=== PATIENT | female | born 1970 | race Caucasian/White ===

== ENCOUNTER 2020-09-06 12:07 | Emergency (ER) | payer OTHER ==
[2020-09-06 12:57] LABS: RED BLOOD COUNT 4.77 M/UL (4.00-5.10); WHITE BLOOD COUNT 10.4 K/UL (4.5-11.0)
[2020-09-06 13:18] LABS: BUN/CREATININE RATIO 11 (0-10)
[2020-09-06] MEDS ORDERED: VIBRAMYCIN100 MG PO (16:24)
== END 2020-09-06 16:35 | disposition home or self-care (01) ==
LOC: ER1 12:07
PROVIDERS: Physician Assistant
DX: J18.9 Pneumonia, unspecified organism (principal); Z20.822 Contact with and (suspected) exposure to COVID-19; J45.909 Unspecified asthma, uncomplicated; Z90.49 Acquired absence of other specified parts of digestive tract; Z90.710 Acquired absence of both cervix and uterus; Z79.899 Other long term (current) drug therapy; Z88.0 Allergy status to penicillin; Z88.2 Allergy status to sulfonamides; F17.210 Nicotine dependence, cigarettes, uncomplicated
CPT/HCPCS: 71045; 80053; 82550; 82553; 83874; 84484; 85025; 85379; 93005; 99285; U0002

== ENCOUNTER → 2020-11-02 | Outpatient (CLI) | payer OTHER ==
[~2020-11-02] MED LIST: PERCOCET 5-3251 EACH PO; TORADOL 10 MG T10 MG PO; VIBRAMYCIN100 MG PO
[2020-11-02 11:47] LABS: HEMOGLOBIN 14.9 gm/dl (12.3-15.3); RED BLOOD COUNT 4.8 M/UL (4.00-5.10); WHITE BLOOD COUNT 11.1 K/UL (4.5-11.0)
[2020-11-02 12:44] LABS: BUN/CREATININE RATIO 14 (0-10)
== END ==
LOC: LAB 10:39
PROVIDERS: Nurse Practitioner Family
DX: R94.31 Abnormal electrocardiogram [ECG] [EKG] (principal)
CPT/HCPCS: 36415; 80053; 80061; 82607; 84443; 85025

== ENCOUNTER 2020-12-19 15:36 | Emergency (ER) | payer OTHER ==
[~2020-12-19 15:36] MED LIST changes: -PERCOCET 5-3251 EACH PO; -TORADOL 10 MG T10 MG PO
[2020-12-19 17:43] LABS: HEMOGLOBIN 14.1 gm/dl (12.3-15.3); RED BLOOD COUNT 4.52 M/UL (4.00-5.10); WHITE BLOOD COUNT 11.5 K/UL (4.5-11.0)
[2020-12-19 18:09] LABS: BUN/CREATININE RATIO 11 (0-10)
[2020-12-19] MEDS ORDERED: PERCOCET 5-3251 EACH PO (18:40)
[2020-12-19] MEDS ORDERED: TORADOL 10 MG T10 MG PO (18:40)
== END 2020-12-19 19:00 | disposition home or self-care (01) ==
LOC: ER1 15:36
PROVIDERS: Family Medicine
DX: M25.521 Pain in right elbow (principal); F17.210 Nicotine dependence, cigarettes, uncomplicated; Z88.1 Allergy status to other antibiotic agents
CPT/HCPCS: 71045; 73080; 80053; 82550; 82553; 83874; 84484; 85025; 85652; 86140; 93005; 96374; 99284; J1885

== ENCOUNTER → 2021-01-02 | Outpatient (CLI) | payer OTHER ==
[~2021-01-02] MED LIST changes: +PERCOCET 5-3251 EACH PO; +TORADOL 10 MG T10 MG PO
== END ==
LOC: CT 12:45
DX: R10.812 Left upper quadrant abdominal tenderness (principal); N83.202 Unspecified ovarian cyst, left side; N83.201 Unspecified ovarian cyst, right side
CPT/HCPCS: 36415; 82565; Q9967

== ENCOUNTER → 2021-03-02 | Outpatient (CLI) | payer OTHER | LOC: EXRD 09:59 | DX: R06.02 Shortness of breath (principal) | CPT/HCPCS: 94060; 94729 ==

== ENCOUNTER → 2021-05-22 | Outpatient (CLI) | payer OTHER | LOC: KOH-I 11:22 | DX: J45.909 Unspecified asthma, uncomplicated (principal); R91.8 Other nonspecific abnormal finding of lung field | CPT/HCPCS: 71046 ==

== ENCOUNTER 2021-12-05 12:05 | Observation (INO) | payer OTHER ==
[~2021-12-05] VITALS: Ht 149.9 cm; Wt 104.3 kg
[2021-12-05 14:00] LABS: HEMOGLOBIN 14.2 gm/dl (12.3-15.3); RED BLOOD COUNT 4.61 M/UL (4.00-5.10); WHITE BLOOD COUNT 10.1 K/UL (4.5-11.0)
[2021-12-05 14:32] LABS: BUN/CREATININE RATIO 11 (0-10)
[2021-12-06 00:46] LABS: HEMOGLOBIN 13.7 gm/dl (12.3-15.3); RED BLOOD COUNT 4.49 M/UL (4.00-5.10); WHITE BLOOD COUNT 11.5 K/UL (4.5-11.0)
[2021-12-06] MEDS ORDERED: PROAIR HFA8.5 GM INH (10:36)
[2021-12-06] MEDS ORDERED: ALBUTEROL2.5 MG/3 M INH (10:36)
[2021-12-06] MEDS ORDERED: CETIRIZINE HCL10 MG PO (10:37)
[2021-12-06] MEDS ORDERED: STIOLTO RESPIMAT4 GM INH (10:38)
[2021-12-06] MEDS ORDERED: LISINOPRIL10 MG PO (10:38)
[2021-12-06] MEDS ORDERED: DALIRESP500 MCG PO (10:39)
[2021-12-06] MEDS ORDERED: MIRALAX17 GM PO (15:13)
[2021-12-06] MEDS ORDERED: ISOSORBIDE MONO30 MG PO (15:13)
[2021-12-06] MEDS ORDERED: LIPITOR40 MG PO (15:15)
== END 2021-12-06 18:08 | disposition home or self-care (01) ==
LOC: ER1 12:05 → CDU 17:33 → MED SURG 4 17:33
PROVIDERS: Physician Assistant; ADMIT Internal Medicine
DX: R07.89 Other chest pain (principal); I10 Essential (primary) hypertension; J44.9 Chronic obstructive pulmonary disease, unspecified; E78.5 Hyperlipidemia, unspecified; K59.00 Constipation, unspecified; E66.9 Obesity, unspecified; Z68.42 Body mass index [BMI] 45.0-49.9, adult; Z79.899 Other long term (current) drug therapy; Z87.891 Personal history of nicotine dependence; Z88.0 Allergy status to penicillin; Z88.2 Allergy status to sulfonamides
CPT/HCPCS: ECHO; 71045; 78452; 80053; 80061; 81001; 82550; 82553; 83036; 83605; 83735; 83880; 84439; 84443; 84484; 85025; 85027; 93005; 93017; 93306; 93971; 96374; 99285; A9502; G0378; J2270; J2785